=== PATIENT | female | born 1940 | race Caucasian/White ===

== ENCOUNTER 2017-05-31 17:25 | Emergency (ER) | payer MEDICARE, OTHER ==
[~2017-05-31] VITALS: Ht 162.6 cm; Wt 67.0 kg
[~2017-05-31 17:25] MED LIST: CIPRO500 MG PO; NAPROSYN500 MG PO; NO HOME MEDS
[2017-05-31] MEDS ORDERED: NAPROSYN500 MG PO (18:02)
[2017-05-31] MEDS ORDERED: FLEXERIL5 M1 PO (18:41)
[2017-05-31] MEDS ORDERED: TRAMADOL HYDROC50 MG PO (18:41)
[2017-05-31 19:10] VITALS: BP 148/83
== END 2017-05-31 19:13 | disposition home or self-care (01) ==
LOC: ED 17:25
DX: S00.83XA Contusion of other part of head, initial encounter (principal); S70.01XA Contusion of right hip, initial encounter; M25.572 Pain in left ankle and joints of left foot; M25.511 Pain in right shoulder; W10.9XXA Fall (on) (from) unspecified stairs and steps, initial encounter; Y92.009 Unspecified place in unspecified non-institutional (private) residence as the place of occurrence of the external cause